=== PATIENT | male | born 1970 | race Caucasian/White ===

== ENCOUNTER 2023-03-20 20:40 | Inpatient (IN) | payer MEDICAID ==
[~2023-03-20] VITALS: Ht 170.2 cm; Wt 85.8 kg
[2023-03-20 22:03] LABS: HEMATOCRIT. 28.8 % (42.0-52.0); HEMOGLOBIN. 9.2 g/dL (14.0-18.0); MEAN CORPUSCULAR HEMOGLOBIN 28.6 pg (28.0-32.0); MEAN CORPUSCULAR VOLUME 88.9 fL (80.0-94.0); MEAN PLATELET VOLUME 10.7 fl (7.4-10.4); PLATELET 52 x1000/uL (130-400); RED BLOOD CELL COUNT 3.24 mill/uL (4.7-6.1); RED CELL DISTRIBUTION WIDTH 18.6 % (11.6-14.6)
[2023-03-20 22:04] LABS: CHLORIDE 108 mEq/L (98-107)
[2023-03-20] MEDS ORDERED: MORPHINE SULFATE 4 MG/ML CPJ (NOT FOR IM USE) IV ONE (22:15)
[2023-03-20 22:42] LABS: NUCLEATED RED BLOOD CELLS 1 /100 WBC; PLATELET ESTIMATE MARKEDLY DECREASED
[2023-03-20 23:14] LABS: CLARITY URINE CLOUDY (CLEAR); COLOR URINE DARK YELLOW (YELLOW); KETONES URINE TRACE (NEGATIVE); LEUKOCYTE ESTERASE URINE 2+ (NEGATIVE); NITRITE URINE NEGATIVE (NEGATIVE); OCCULT BLOOD URINE 3+ (NEGATIVE); PH URINE 6.5 (4.5-8.0); PROTEIN URINE 2+ (NEGATIVE); SPECIFIC GRAVITY URINE 1.026 (1.005-1.030)
[2023-03-20] MEDS ORDERED: CEFTRIAXONE 1GM PREMIX 50 ML IV NR (23:30)
[2023-03-20] MEDS ORDERED: ONDANSETRON HCL 4MG/2ML INJ IV PRN (23:45)
[2023-03-20] MEDS ORDERED: MAGNESIUM/ALUMINUM HYDROXIDE/SIMETHICONE 30ML UDC PO PRN (23:45)
[2023-03-20] MEDS ORDERED: CLONIDINE 0.1MG TABLET PO PRN (23:45)
[2023-03-20] MEDS ORDERED: ACETAMINOPHEN 325MG TABLET PO PRN ×2 (23:45)
[2023-03-20] MEDS ORDERED: DOCUSATE SODIUM 100MG CAPSULE PO PRN (23:45)
[2023-03-20] MEDS ORDERED: HYDROCODONE/ACETAMINOPHEN 5/325MG TABLET PO PRN (23:45)
[2023-03-20] MEDS ORDERED: GUAIFENESIN 200MG/10ML SUGAR FREE UDC PO PRN (23:45)
[2023-03-20] MEDS ORDERED: IPRATROPIUM/ALBUTEROL 0.5-3(2.5)MG/3ML NEB HHN PRN (23:45)
[2023-03-20] MEDS ORDERED: ENOXAPARIN 40MG/0.4ML SYR SUBCUT SCH (23:45)
[2023-03-21 04:30] VITALS: BP 152/82; PULSE 83; RESP 20; TEMP 98.2
[2023-03-21] MEDS ORDERED: NALOXONE HCL 0.4MG/ML VIAL IV PRN (05:00)
[2023-03-21 08:00] VITALS: BP 105/67; PULSE 90; RESP 20; TEMP 97.9
[2023-03-21 08:43] LABS: CHLORIDE 109 mEq/L (98-107)
[2023-03-21 08:58] LABS: HDL CHOLESTEROL 24 mg/dL (40-59); LDL CHOLESTEROL 49 mg/dL (5-100); T4 FREE 1.54 ng/dL (0.76-1.46); TOTAL IRON BINDING CAPACITY 350 ug/dL (250-450)
[2023-03-21] MEDS ORDERED: CEFTRIAXONE 1GM PREMIX 50 ML IV SCH (09:00)
[2023-03-21] MEDS ORDERED: ENOXAPARIN 40MG/0.4ML SYR SUBCUT SCH (09:00)
[2023-03-21] MEDS: PANTOPRAZOLE SODIUM 40 MG/VIAL IV SCH (09:16)
[2023-03-21 09:52] LABS: HEMATOCRIT. 27.9 % (42.0-52.0); HEMOGLOBIN. 8.9 g/dL (14.0-18.0); MEAN CORPUSCULAR HEMOGLOBIN 28.3 pg (28.0-32.0); MEAN CORPUSCULAR VOLUME 88.5 fL (80.0-94.0); MEAN PLATELET VOLUME 10.9 fl (7.4-10.4); RED BLOOD CELL COUNT 3.15 mill/uL (4.7-6.1); RED CELL DISTRIBUTION WIDTH 18.5 % (11.6-14.6)
[2023-03-21 10:06] LABS: PLATELET 48 x1000/uL (130-400)
[2023-03-21 10:36] LABS: VITAMIN B12 SERUM 1070 pg/mL (211-911)
[2023-03-21] MEDS ORDERED: PNEUMOCOCCAL 23-VAL P-SAC VAC 0.5 ML IM ONE (11:00)
[2023-03-21 11:16] LABS: FERRITIN 14 ng/mL (22-322)
[2023-03-21 11:26] LABS: HEPATITIS B SURFACE ANTIGEN NEGATIVE
[2023-03-21 11:44] LABS: PLATELET ESTIMATE MARKEDLY DECREASED
[2023-03-21 12:00] VITALS: BP 111/69; PULSE 88; RESP 18; TEMP 97.9
[2023-03-21] MEDS ORDERED: CEFTRIAXONE 1,000 MG in DEXTROSE 5% WATER 50 ML IV SCH ×2 (12:30→21:00)
[2023-03-21] MEDS ORDERED: MORPHINE SULFATE 2 MG/ML CPJ (NOT FOR IM USE) IV NR (13:30)
[2023-03-21] MEDS: TAMSULOSIN HCL 0.4MG SR CAPSULE PO SCH (14:06)
[2023-03-21 16:00] VITALS: BP 99/59; PULSE 80; RESP 19; TEMP 96.8
[2023-03-21 20:00] VITALS: BP 93/54; PULSE 81; RESP 18; TEMP 97.1
[2023-03-22] VITALS: BP 111/67; PULSE 86; RESP 20; TEMP 97.7
[2023-03-22] MEDS ORDERED: CEFTRIAXONE 1,000 MG in DEXTROSE 5% WATER 50 ML IV SCH ×2
[2023-03-22 04:00] VITALS: BP 101/55; PULSE 76; RESP 16; TEMP 97.7
[2023-03-22 07:50] LABS: CHLORIDE 109 mEq/L (98-107)
[2023-03-22 08:00] VITALS: BP 98/65; PULSE 76; RESP 18; TEMP 97.8
[2023-03-22 08:18] LABS: HEMATOCRIT. 27.1 % (42.0-52.0); HEMOGLOBIN. 8.8 g/dL (14.0-18.0); MEAN CORPUSCULAR HEMOGLOBIN 28.8 pg (28.0-32.0); MEAN CORPUSCULAR VOLUME 88.9 fL (80.0-94.0); MEAN PLATELET VOLUME 11.3 fl (7.4-10.4); RED BLOOD CELL COUNT 3.04 mill/uL (4.7-6.1); RED CELL DISTRIBUTION WIDTH 18.1 % (11.6-14.6)
[2023-03-22] MEDS: PANTOPRAZOLE SODIUM 40 MG/VIAL IV SCH (09:00)
[2023-03-22] MEDS: TAMSULOSIN HCL 0.4MG SR CAPSULE PO SCH (09:00)
[2023-03-22 09:56] VITALS: BP 98/65; PULSE 76; TEMP 97.8; O2SAT 95
[2023-03-22 13:53] LABS: PLATELET ESTIMATE MARKEDLY DECREASED
[2023-03-22 13:54] LABS: PLATELET 46 x1000/uL (130-400)
== END 2023-03-22 11:49 | disposition home or self-care (01) | DRG 501 ==
LOC: ER 20:40 → EDBEDREQ 23:30 → EDBEDREQTM 23:30 → EDBEDREQSVC 03-21 00:56 → MICUSO 03-21 02:22 → 8WST 03-21 04:52
PROVIDERS: ADMIT Hospitalist; ATTEND Hospitalist
DX: N47.1 Phimosis (principal); E43 Unspecified severe protein-calorie malnutrition; D69.6 Thrombocytopenia, unspecified; E83.51 Hypocalcemia; D72.819 Decreased white blood cell count, unspecified; D50.0 Iron deficiency anemia secondary to blood loss (chronic); F17.210 Nicotine dependence, cigarettes, uncomplicated; K74.60 Unspecified cirrhosis of liver; N39.0 Urinary tract infection, site not specified; R33.8 Other retention of urine; R73.9 Hyperglycemia, unspecified; Z68.29 Body mass index [BMI] 29.0-29.9, adult
CPT/HCPCS: 36415; 74176; 80053; 80061; 80076; 81003; 82607; 82728; 82746; 83036; 83540; 83550; 84153; 84439; 84443; 85025; 86803; 87340; 93970; 99285; C9113; J0696; J1650; J2270; J7060; A4315; G0103

== ENCOUNTER 2024-03-19 04:13 | Inpatient (IN) | payer SELFPAY ==
[~2024-03-19] VITALS: Ht 170.2 cm; Wt 89.8 kg
[~2024-03-19 04:13] MED LIST: CEPH500T PO
[2024-03-19 05:54] LABS: HEMATOCRIT. 34.8 % (42.0-52.0); HEMOGLOBIN. 11.5 g/dL (14.0-18.0); MEAN CORPUSCULAR HEMOGLOBIN 32.6 pg (28.0-32.0); MEAN CORPUSCULAR HGB CONC 32.9 g/dL (31.0-37.0); MEAN PLATELET VOLUME 10.9 fl (7.4-10.4); RED BLOOD CELL COUNT 3.52 mill/uL (4.7-6.1); RED CELL DISTRIBUTION WIDTH 16.7 % (11.6-14.6)
[2024-03-19 05:58] LABS: DIFFERENTIAL COMMENT 1
[2024-03-19 06:01] LABS: CHLORIDE 110 mEq/L (98-107); POTASSIUM 3.9 mEq/L (3.5-5.1); SODIUM 142 mEq/L (136-145)
[2024-03-19 06:02] LABS: CALCIUM 7.7 mg/dL (8.7-10.4); CARBON DIOXIDE 26 mEq/L (21-32)
[2024-03-19 06:06] LABS: INR 1.4; PROTHROMBIN TIME 15.4 sec (9.6-11.0)
[2024-03-19 06:07] LABS: CREATININE 0.6 mg/dL (0.6-1.3); GLUCOSE 109 mg/dL (70-105)
[2024-03-19 06:11] LABS: UREA NITROGEN BLOOD < 5 mg/dL (9-23)
[2024-03-19] MEDS: SODIUM CHLORIDE 0.9% 1,000 ML IV ONE ×2 (06:19→14:24)
[2024-03-19 06:27] LABS: WHITE BLOOD COUNT 1.9 x1000/uL (4.5-11.0)
[2024-03-19] MEDS: CEFAZOLIN 1000MG PREMIX 50 ML IV ONE (06:30)
[2024-03-19] MEDS: ONDANSETRON HCL 4MG/2ML INJ IV STA (07:08)
[2024-03-19] MEDS: MORPHINE SULFATE 4 MG/ML INJ (FOR IV/IM USE) IV STA (07:10)
[2024-03-19 09:12] LABS: CLARITY URINE CLEAR (CLEAR); COLOR URINE YELLOW (YELLOW); GLUCOSE URINE NEGATIVE (NEGATIVE); KETONES URINE NEGATIVE (NEGATIVE); LEUKOCYTE ESTERASE URINE NEGATIVE (NEGATIVE); NITRITE URINE NEGATIVE (NEGATIVE); OCCULT BLOOD URINE NEGATIVE (NEGATIVE); PH URINE 5.5 (4.5-8.0); PROTEIN URINE NEGATIVE (NEGATIVE); SPECIFIC GRAVITY URINE 1.011 (1.005-1.030)
[2024-03-19 12:00] VITALS: BP_SYST 112; BP_SYST 118; BP_DIAS 62; BP_DIAS 65; PULSE 74; PULSE 77; RESP 18; TEMP 97.8
[2024-03-19] MEDS ORDERED: CLONIDINE 0.1MG TABLET PO PRN (12:15)
[2024-03-19] MEDS ORDERED: IPRATROPIUM/ALBUTEROL 0.5-3(2.5)MG/3ML NEB HHN PRN (12:15)
[2024-03-19] MEDS ORDERED: MAGNESIUM/ALUMINUM HYDROXIDE/SIMETHICONE 30ML UDC PO PRN (12:15)
[2024-03-19 12:29] LABS: ANISOCYTOSIS 1+; PLATELET 30 x1000/uL (130-400); PLATELET ESTIMATE MARKEDLY DECREASED
[2024-03-19 13:35] LABS: CHLORIDE 110 mEq/L (98-107); SODIUM 141 mEq/L (136-145)
[2024-03-19 13:36] LABS: CALCIUM 7.7 mg/dL (8.7-10.4); CARBON DIOXIDE 24 mEq/L (21-32)
[2024-03-19 13:41] LABS: CREATININE 0.5 mg/dL (0.6-1.3); GLUCOSE 87 mg/dL (70-105)
[2024-03-19 13:47] LABS: HEMATOCRIT. 32.6 % (42.0-52.0); HEMOGLOBIN. 10.5 g/dL (14.0-18.0); MEAN CORPUSCULAR HEMOGLOBIN 31.9 pg (28.0-32.0); MEAN CORPUSCULAR HGB CONC 32.1 g/dL (31.0-37.0); MEAN CORPUSCULAR VOLUME 99.4 fL (80.0-94.0); MEAN PLATELET VOLUME 10.2 fl (7.4-10.4); RED BLOOD CELL COUNT 3.28 mill/uL (4.7-6.1); RED CELL DISTRIBUTION WIDTH 16.7 % (11.6-14.6)
[2024-03-19 13:59] LABS: DIFFERENTIAL COMMENT 1; WHITE BLOOD COUNT 1.6 x1000/uL (4.5-11.0)
[2024-03-19] MEDS: BACITRACIN/POLYMYXIN B SULFATE OPHTH OINT 3.5GM BOTHEYE SCH (14:00)
[2024-03-19 14:02] LABS: UREA NITROGEN BLOOD < 5 mg/dL (9-23)
[2024-03-19] MEDS: CEFEPIME 1GM/50ML 50 ML IV SCH (14:24)
[2024-03-19 15:31] LABS: ANISOCYTOSIS 1+; PLATELET ESTIMATE MARKEDLY DECREASED
[2024-03-19 15:32] LABS: PLATELET 30 x1000/uL (130-400)
[2024-03-19 16:00] VITALS: BP 112/62; PULSE 74; RESP 18; TEMP 97.5
[2024-03-19] MEDS: MORPHINE SULFATE 2 MG/ML CPJ (NOT FOR IM USE) IV PRN (16:31)
[2024-03-19 17:40] LABS: *AMPHETAMINES SCREEN URINE NEGATIVE (NEGATIVE); *BARBITURATES SCREEN URINE NEGATIVE (NEGATIVE); *BENZODIAZEPINES SCREEN URINE NEGATIVE (NEGATIVE); CANNABINOID URINE SCREEN NEGATIVE (NEGATIVE); ECSTASY MDMA SCREEN URINE NEGATIVE (NEGATIVE); METHADONE URINE SCREEN NEGATIVE (NEGATIVE); OPIATES URINE SCREEN PRESUMPTIVE POSITIVE (NEGATIVE); PHENCYCLIDINE URINE SCREEN NEGATIVE (NEGATIVE)
[2024-03-19 17:46] LABS: *COCAINE SCREEN URINE NEGATIVE (NEGATIVE)
[2024-03-19 20:00] VITALS: BP 137/89; PULSE 76; RESP 18; TEMP 98.1
[2024-03-19] MEDS ORDERED: NALOXONE HCL 0.4MG/ML VIAL IV PRN (20:15)
[2024-03-19] MEDS ORDERED: CEFEPIME HCL 1000MG VIAL IM SCH (21:00)
[2024-03-19] MEDS: FAMOTIDINE 20MG TABLET PO SCH (21:01)
[2024-03-19] MEDS: ACETAMINOPHEN 325MG TABLET PO PRN (21:01)
[2024-03-19] MEDS: ONDANSETRON HCL 4MG/2ML INJ IV PRN (22:03)
[2024-03-20] VITALS (9 sets, daily range): BP systolic 78–140; BP diastolic 45–86; PULSE 72–80; RESP 18–20; TEMP 97–100
[2024-03-20 09:32] LABS: HEMATOCRIT. 31.6 % (42.0-52.0); HEMOGLOBIN. 10.4 g/dL (14.0-18.0); MEAN CORPUSCULAR HEMOGLOBIN 32.6 pg (28.0-32.0); MEAN CORPUSCULAR HGB CONC 32.9 g/dL (31.0-37.0); MEAN CORPUSCULAR VOLUME 98.9 fL (80.0-94.0); MEAN PLATELET VOLUME 10.5 fl (7.4-10.4); RED BLOOD CELL COUNT 3.19 mill/uL (4.7-6.1); RED CELL DISTRIBUTION WIDTH 16.4 % (11.6-14.6)
[2024-03-20 09:44] LABS: DIFFERENTIAL COMMENT 1; WHITE BLOOD COUNT 1.6 x1000/uL (4.5-11.0)
[2024-03-20 09:45] LABS: PLATELET 21 x1000/uL (130-400)
[2024-03-20 10:05] LABS: CALCIUM 8.1 mg/dL (8.7-10.4); CARBON DIOXIDE 25 mEq/L (21-32); CHLORIDE 103 mEq/L (98-107); POTASSIUM 3.8 mEq/L (3.5-5.1); SODIUM 134 mEq/L (136-145)
[2024-03-20 10:10] LABS: CREATININE 0.6 mg/dL (0.6-1.3)
[2024-03-20 10:11] LABS: GLUCOSE 88 mg/dL (70-105); UREA NITROGEN BLOOD 6 mg/dL (9-23)
[2024-03-20] MEDS: BACITRACIN/POLYMYXIN B SULFATE OPHTH OINT 3.5GM BOTHEYE SCH (13:50)
[2024-03-20 15:45] LABS: ANISOCYTOSIS 1+; PLATELET ESTIMATE MARKEDLY DECREASED
[2024-03-20 17:15] LABS: HEMOGLOBIN 10.1 g/dL (14.0-18.0)
[2024-03-20 17:21] LABS: INR 1.5; PROTHROMBIN TIME 16.2 sec (9.6-11.0)
[2024-03-21] VITALS: BP 123/80; PULSE 77; RESP 18; TEMP 97.8
[2024-03-21 04:00] VITALS: BP 125/80; PULSE 74; RESP 19; TEMP 97.8
[2024-03-21 08:00] VITALS: BP 113/74; PULSE 69; RESP 18; TEMP 98.3
[2024-03-21 09:07] LABS: DIFFERENTIAL COMMENT 1; HEMATOCRIT. 32.8 % (42.0-52.0); HEMOGLOBIN. 10.8 g/dL (14.0-18.0); MEAN CORPUSCULAR HEMOGLOBIN 32.4 pg (28.0-32.0); MEAN CORPUSCULAR HGB CONC 32.9 g/dL (31.0-37.0); MEAN CORPUSCULAR VOLUME 98.4 fL (80.0-94.0); MEAN PLATELET VOLUME 9.9 fl (7.4-10.4); PLATELET 28 x1000/uL (130-400); RED BLOOD CELL COUNT 3.33 mill/uL (4.7-6.1); RED CELL DISTRIBUTION WIDTH 16.1 % (11.6-14.6); WHITE BLOOD COUNT 2.1 x1000/uL (4.5-11.0)
[2024-03-21] MEDS ORDERED: NEO/5DRO7 EACHEYE (10:44)
[2024-03-21] MEDS ORDERED: TOPUD PO (10:44)
[2024-03-21] MEDS ORDERED: KETO-99 OP (10:44)
[2024-03-21 12:35] VITALS: BP 113/77; PULSE 81; TEMP 98.1; O2SAT 100
[2024-03-21 20:44] LABS: PLATELET ESTIMATE DECREASED
== END 2024-03-21 13:05 | disposition home or self-care (01) | DRG 384 ==
LOC: ER 04:13 → 6WST 09:17
PROVIDERS: ADMIT Internal Medicine; ATTEND Internal Medicine
DX: S00.03XA Contusion of scalp, initial encounter (principal); D61.818 Other pancytopenia; S00.11XA Contusion of right eyelid and periocular area, initial encounter; Y04.8XXA Assault by other bodily force, initial encounter; Y93.89 Activity, other specified; Y92.89 Other specified places as the place of occurrence of the external cause; Y99.8 Other external cause status; Z79.899 Other long term (current) drug therapy
CPT/HCPCS: 36415; 70486; 71045; 80048; 80305; 81003; 85014; 85018; 85025; 85044; 85049; 86850; 86900; 93970; 97162; J0690; J0692; J2270; J2405; J7030; P9034